=== PATIENT | male | born 1980 | race Caucasian/White ===

== ENCOUNTER 2016-10-18 14:16 | Inpatient (IN) ==
[2016-10-18] MEDS ORDERED: Haloperidol Lactate 5 MG/ML VIAL IM ONE (14:26)
[2016-10-18] MEDS ORDERED: *HR* LORazepam 1 MG TABLET PO ONE ×2 (14:26→16:50)
[2016-10-18] MEDS: Tdap (ADACEL) Vaccine 0.5 ML IM ONE ×2 (14:37→18:40)
[2016-10-18 14:52] LABS: Amphetamine Screen,Urine Negative ng/mL (Cutoff=1000); Barbiturate Screen,Urine Negative ng/mL (Cutoff=200); Benzodiazepines Screen,Urine Negative ng/mL (Cutoff=200); Cannabinoid Screen,Urine Negative ng/mL (Cutoff = 50); Cocaine Screen,Urine Negative ng/mL (Cutoff= 300); Opiate Screen,Urine Negative ng/mL (Cutoff=300); Phencyclidine Screen,Urine Negative ng/mL (Cutoff=25)
[2016-10-18] MEDS ORDERED: Nystatin POWDER 30 GM BOTTLE TP PRN (18:24)
[2016-10-18] MEDS ORDERED: Haloperidol Lactate 5 MG/ML VIAL IM PRN (18:26)
[2016-10-18] MEDS ORDERED: *HR* LORazepam 1 MG TABLET PO PRN (18:26)
[2016-10-18] MEDS ORDERED: Ibuprofen 400 MG TABLET PO PRN (18:26)
[2016-10-18] MEDS ORDERED: *HR* LORazepam 2 MG/ML VIAL IM PRN (18:26)
[2016-10-18] MEDS ORDERED: hydrOXYzine pamoate 25 MG CAPSULE PO PRN (18:26)
[2016-10-18] MEDS ORDERED: Mag Hydrox/Al Hydrox/Simeth 30 ML UDC PO PRN (18:26)
[2016-10-18] MEDS ORDERED: MOM Conc 10 ML UD.LIQ PO PRN (18:26)
--- NOTE | 2016-10-18 20:34 | Emergency Department Note ---
Disposition Clinical Impression: Suicidal behavior Qualifiers: Attempted self-injury: with attempted self-injury Qualified Code(s): T14.91 - Suicide attempt Disposition: Admitted As Inpatient General Adult HPI - General Chief complaint: ED Psychiatric Symptoms Stated complaint: SI Time Seen by Provider: 10/18/16 14:23 Source: patient Limitations: no limitations Nursing Notes Reviewed: Yes Vital Signs Reviewed: Yes - History of Present Illness HPI Narrative: 36-year-old male who presents with concern for suicidal ideations. He has a plan that he would cut himself with a knife. He does have access to a knife and actually cut his right lateral chest wall today. He actually was seen one day ago and feels suicidal because he has no access to benzodiazepines or too opiates. He has a history of self-injurious behavior in the past. Pain Scale: 0 - Related Data Home Medications Medication Instructions Recorded Confirmed Ergocalciferol (VITAMIN D2) 50,000 unit PO WEFR 06/18/15 10/18/16 [Vitamin D2 (50,000 UNIT)] LORazepam [Ativan] 4 mg PO HS 06/18/15 10/18/16 Omeprazole [PriLOSEC] 40 mg PO DAILY 06/18/15 10/18/16 Nystatin POWDER [Nystop] 1 appl TP BID PRN 07/11/15 10/18/16 Gabapentin [Neurontin] 800 mg PO TID 10/18/16 10/18/16 Oxycodone HCl/Acetaminophen 1 tab PO Q6H PRN 10/18/16 10/18/16 [Percocet 10-325 mg Tablet] Sertraline [Zoloft] 100 mg PO DAILY 10/18/16 10/18/16 Tizanidine HCl [Zanaflex] 2 mg PO TID 10/18/16 10/18/16 risperiDONE [Risperdal] 2 mg PO QPM 10/18/16 10/18/16 risperiDONE [Risperidone] 1 - 2 mg PO QAM 10/18/16 10/18/16 Previous Rx's Medication Instructions Recorded LORazepam [Ativan] 2 mg PO Q12HR PRN #8 tablet 05/01/16 hydrOXYzine pamoate [HydrOXYzine 25 mg PO BID PRN #20 capsule 10/17/16 Pamoate] Allergies Allergy/AdvReac Type Severity Reaction Status Date / Time Cefaclor [From [facility]] Allergy See Verified 10/17/16 08:27 Comments All systems ED: reviewed and negative except as stated. Past Medical History - Past Medical History Medical history: Reports: arthritis, COPD, diabetes, GERD, hyperlipidemia, hypertension, osteoporosis, pulmonary embolus, venous stasis, other Surgical history: Reports: other (Urologic surgical procedures for Kathleen) Psychiatric history: Reports: anxiety, depression, panic disorder - Social History Smoking Status: Current every day smoker Smokeless Tobacco Status: No Alcohol use: Reports: occasionally Drug use: Reports: none Physical Exam - General Limitations: no limitations General appearance: alert - Head Head exam: atraumatic - Eye Eye exam: Present: normal appearance - ENT ENT exam: normal exam, normal oropharynx - Neck Neck exam: Present: normal inspection, full ROM - Chest Chest inspection: Present: normal inspection, symmetric chest wall rise - Respiratory Respiratory exam: Present: normal lung sounds bilaterally - Cardiovascular Cardiovascular exam: Present: regular rate, normal rhythm - Abdominal Exam Abdominal exam: Present: soft, Non-Tender - Male exam: Present: normal inspection - Extremities Exam Extremities exam: Present: normal inspection, full ROM - Expanded Lower Extremity Exam Hip/Pelvis exam: Present: normal inspection, full ROM Upper leg exam: Present: normal inspection, full ROM Knee exam: Present: normal inspection Gait: observed and normal - Back Exam Back exam: Present: normal inspection, full ROM - Neurological Exam Neurological exam: Present: alert, oriented X3, CN II-XII intact - Psychiatric Psychiatric exam: Present: normal affect, depressed - Skin Skin exam: Present: warm, dry Course Vital Signs Temperature 98.2 F 10/18/16 14:17 Pulse Rate 96 10/18/16 14:17 Respiratory Rate 20 10/18/16 14:17 Blood Pressure 180/97 10/18/16 14:17 O2 Sat by Pulse Oximetry 96 10/18/16 14:17 Temperature 98.2 F 10/18/16 14:17 Pulse Rate 96 10/18/16 14:17 Respiratory Rate 0 10/18/16 17:00 Blood Pressure 0/0 10/18/16 17:00 O2 Sat by Pulse Oximetry 96 10/18/16 14:17 Oxygen Delivery Oxygen Delivery Room Air Medical Decision Making - MDM Narrative Medical decision making narrative: Male patient with suicidal ideations. Evaluated by our psychiatry team who deemed the patient should be admitted for further evaluation. He was given Haldol and Ativan to calm him. He is now cooperative. He will be admitted for psychiatric evaluation. He will be admitted to the psychiatric service. Tetanus shot was updated. - Lab Data Lab Results 10/18/16 10/18/16 Range/Units 14:31 14:46 Urine Opiates Screen Negative (Nvckyx=066) ng/mL Ur Barbiturates Screen Negative (Pvxyqm=267) ng/mL Ur Phencyclidine Scrn Negative (Cutoff=25) ng/mL Ur Amphetamines Screen Negative (Bbbpvv=7623) ng/mL U Benzodiazepines Scrn Negative (Vgfysm=102) ng/mL Urine Cocaine Screen Negative (Cutoff= 300) ng/mL U Marijuana (THC) Screen Negative (Cutoff = 50) ng/mL Ethyl Alcohol < 10 (0-10) mg/dL
[2016-10-18] MEDS: Nicotine 21 MG PATCH.TD24 TD SCH (20:46)
[2016-10-18] MEDS: tiZANidine 4 MG TABLET PO SCH (20:47)
[2016-10-18] MEDS: traZODone 50 MG TABLET PO PRN (20:47)
[2016-10-18] MEDS: Gabapentin 400 MG CAPSULE PO SCH (20:47)
[2016-10-19] MEDS: Nicotine 21 MG PATCH.TD24 TD SCH (08:16)
[2016-10-19] MEDS: tiZANidine 4 MG TABLET PO SCH ×3 (08:17→20:36)
[2016-10-19] MEDS: risperiDONE 1 MG TABLET PO SCH (08:19)
[2016-10-19] MEDS: Gabapentin 400 MG CAPSULE PO SCH ×3 (08:19→20:36)
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
[2016-10-19] MEDS ORDERED: risperiDONE 1 MG TABLET PO SCH (18:00)
[2016-10-19] MEDS: traZODone 50 MG TABLET PO PRN (20:36)
[2016-10-20] MEDS: Nicotine 21 MG PATCH.TD24 TD SCH (09:21)
[2016-10-20] MEDS: Gabapentin 400 MG CAPSULE PO SCH (09:21)
[2016-10-20] MEDS: risperiDONE 1 MG TABLET PO SCH (09:22)
[2016-10-20] MEDS: tiZANidine 4 MG TABLET PO SCH (09:22)
--- NOTE | 2016-10-20 13:31 | Discharge Summary ---
Date of Encounter: 10/20/16 Time of Encounter: 13:30 Diagnosis - Discharge Diagnosis (1) Unspecified episodic mood disorder Status: Acute (2) Benzodiazepine dependence Status: Acute Medications - Discharge Medications Prescriptions: LORazepam [Ativan] 1 mg PO Q12HR PRN #8 tablet PRN Reason: Anxiety Ergocalciferol (VITAMIN D2) [Vitamin D2 (50,000 UNIT)] 50,000 unit PO WEFR 06/18 [History] Omeprazole [PriLOSEC] 40 mg PO DAILY 06/18/15 [History] Nystatin POWDER [Nystop] 1 appl TP BID PRN 07/11/15 [History] hydrOXYzine pamoate [HydrOXYzine Pamoate] 25 mg PO BID PRN #20 capsule 10/17/16 [Rx] Gabapentin [Neurontin] 800 mg PO TID 10/18/16 [History] Oxycodone HCl/Acetaminophen [Percocet 10-325 mg Tablet] 1 tab PO Q6H PRN [History] Sertraline [Zoloft] 100 mg PO DAILY 10/18/16 [History] Tizanidine HCl [Zanaflex] 2 mg PO TID 10/18/16 [History] LORazepam [Ativan] 1 mg PO Q12HR PRN #8 tablet 10/20/16 [Rx] Allergies Cefaclor [From Ceclor] Allergy (Verified 10/17/16 08:27) See Comments Provider Date of admission: 10/19/16 15:22 Primary care physician: PCP NO Discharging clinician: Jonas Ruvalcaba Assessment and Plan - Patient/Caregiver Discharge Instructions Activity: resume usual activities as tolerated Diet: regular diet - Follow up Plan Follow up with: [facility] [Outside] - 10/29/16 10:30 am (The above appointment is with Kasia Thomas, counselor at [facility]. Your first appointment will be very thorough and the total appointment time will take between two and three hours. You will be completing paperwork, meeting with a counselor and a nurse, and developing a treatment plan. You will receive follow- up appointments for on-going services , which could include counseling and community support. Please bring the following with you to your first visit to the clinic: 1) proof of household income (two consecutive pay stubs, social security award letter, bank statement , statement letter from [facility], child support statement, IRS 1040 or W2 form, or a statement from the person who financially supports you stating they help provide for your basic needs), 2) proof of residency (drivers license, a piece of mail showing your address, a statement from person you live with verifying you live at their address), 3) your social security card, 4) photo ID, and 5) your insurance card (if you have commercial insurance you must call to obtain a prior authorization number before you arrive to your first appointment). If you do not bring these items, you will not be seen.) Ayan Levin MD [Partnered Physician] - 10/27/16 4:00 pm (The above appointment is with Dr. Levin's nurse practitioner, Radha Amaya, as Dr. Levin does not have a hospital follow-up appointment available. You will see Dr. Levin again on 12/25/2016 at 10:00am) Functional capacity at discharge: independent ambulation Overall status at discharge: Stable Disposition: Home, Self-Care Hospital Course Hospital course: Mr. Vidales is a 36 year old male admitted for suicidal ideation and benzodiazepine dependence. Detailed admission please see H&P On the unit patient was educated about benzodiazepine and their side effects and he chose not to use the medication while he was in the hospital, he did not experience any anxiety episodes or panic attacks, he participated in groups and was medication compliant. She denies any problem with sleep or appetite. He denies any suicidal ideation. His discharge plans include to refer to mental health's clinic to manage his medication. On discharge he was medically stable , nonsuicidal and future oriented. - Time Spent with Patient Total time spent providing and/or coordinating discharge services: Greater than 30 minutes Quality - Multiple Antipsychotics Patient discharged on 2 or more antipsychotic medications: No Procedures - Procedures Procedures: Medication Management, Crisis Stabilization, Supportive Therapy, Group Therapy, Psychoeducational Therapy Mental Status Exam - Mental Status Exam Patient orientation: Yes Person, Yes Time, Yes Place Level of alertness: Alert Patient appearance: Appropriate, Well Groomed, Obese Behavior: calm, cooperative Psychomotor activity: Normal Eye contact: Maintains Eye Contact Mood description: Euthymic/stable Affect description: congruent with mood, full range Speech pattern: Normal rate, Normal rhythm, Normal tone Speech Volume: Normal Thought process: Linear, Goal Oriented Thought Content: No Suicidal ideation, No Homicidal ideation, No Overt delusions Perceptual Disturbances: No Auditory hallucinations, No Visual hallucinations Judgment: Limited Insight: Partial
[2016-10-20 14:00] VITALS: BP 147/84
== END 2016-10-20 14:50 | disposition home or self-care (01) | DRG 753 ==
LOC: EMEROO 14:16 → 1ANU 14:16
PROVIDERS: ADMIT Psychiatry & Neurology Psychiatry; ATTEND Psychiatry & Neurology Psychiatry